=== PATIENT | female | born 1965 | race Caucasian/White ===

== ENCOUNTER 2017-11-09 18:54 | Inpatient (IN) | payer OTHER ==
[~2017-11-09] VITALS: Ht 154.9 cm; Wt 72.6 kg
[2017-11-09 18:58] VITALS: BP 92/56
--- NOTE | 2017-11-09 19:00 | NUR ---
biba to rm 6 report given to Josephine TORRES
--- NOTE | 2017-11-09 19:01 | NUR ---
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 PT DENIES N/V/D; SKIN IS INTACT, PALE/DIAPHORETIC; AAOX4, PERRL; LUNGS CLEAR BL, BREATHING UNLABORED; HR EVEN AND REGULAR, BL PERIPHERAL PULSES PRESENT; BS ACTIVE X4, NO TENDERNESS TO PALPATION, NO HEPATOSPLENOMEGALLY PALPATED, RESONANT TO PERCUSSION; PT DENIES ANY FEVER, CP, SOB, OR COUGH AT THIS TIME; PT STATES 0/10 PAIN AT THIS TIME, BUT C/O NUMBNESS IN R ARM; VSS; PATIENT POSITIONED FOR COMFORT; HOB ELEVATED; BEDRAILS UP X2; BED DOWN.
[2017-11-09] MEDS ORDERED: NACL 0.9% 1,000 ML IV ONE ×2 (19:10→20:55)
--- NOTE | 2017-11-09 19:24 | NUR ---
histotechnician at bedside.
[2017-11-09 19:44] LABS: BASOPHILS # (AUTO) 0.1 K/uL (0.00-0.22); BASOPHILS % (AUTO) 1.1 % (0.0-2.0); EOSINOPHILS # (AUTO) 0.1 K/uL (0-0.4); EOSINOPHILS % (AUTO) 1.1 % (0.0-4.0); HEMATOCRIT 27.4 % (36-48); HEMOGLOBIN 8.8 g/dL (12.0-16.0); LYMPHOCYTES # (AUTO) 1.8 K/uL (2.5-16.5); LYMPHOCYTES % (AUTO) 29.4 % (20.5-51.1); MEAN CORPUSCULAR HEMOGLOBIN 29 pg (27-31); MEAN CORPUSCULAR HGB CONC 32 g/dL (33-37); MONOCYTES # (AUTO) 0.4 K/uL (0.8-1.0); MONOCYTES % (AUTO) 6.9 % (1.7-9.3); NEUTROPHILS # (AUTO) 3.9 K/uL (1.8-7.7); NEUTROPHILS % (AUTO) 61.5 % (42.2-75.2); PLATELET COUNT (AUTO) 241 K/uL (140-450); RED BLOOD CELL COUNT(AUTO) 3.01 MIL/uL (4.20-5.40); RED CELL DISTRIBUTION WIDTH 15.6 % (11.6-13.7); WHITE BLOOD COUNT (AUTO) 6.3 K/uL (4.8-10.8)
[2017-11-09 20:19] LABS: ALBUMIN 3.2 g/dL (3.4-5.0); ANION GAP 11.2 (8-16); CARBON DIOXIDE 26.2 mmol/L (21-32); CREATININE 1.8 mg/dL (0.6-1.3); POTASSIUM 3.4 mmol/L (3.5-5.1); TOTAL BILIRUBIN 0.2 mg/dL (0.0-1.0)
[2017-11-09] MEDS ORDERED: cefTRIAXone 1,000 MG in DEXT 5% MINI-BAG PLUS 50 ML IV ONE (20:30)
--- NOTE | 2017-11-09 20:34 | NUR ---
PHLEB at bedside for blood draw.
[2017-11-09] MEDS ORDERED: cefTRIAXone 1,000 MG VIAL ONE ×2 (20:38→22:39)
[2017-11-09] MEDS ORDERED: ONDANSETRON 4 MG/2 ML VIAL IM/IVP PRN (20:55)
[2017-11-09] MEDS ORDERED: ACETAMINOPHEN 325 MG TAB PO PRN (20:55)
[2017-11-09] MEDS ORDERED: ASPIRIN 81 MG TAB.CHEW PO ONE (21:05)
[2017-11-09] MEDS ORDERED: BUDESONIDE 0.5 MG/2 ML NEBU INH SCH ×2 (21:10→22:30)
[2017-11-09] MEDS ORDERED: ALBUTEROL SULFATE/IPRATROPIU 3 ML SOL IH PRN (21:10)
--- NOTE | 2017-11-09 21:15 | NUR ---
Dr. Bauer evaluating patient at bedside.
[2017-11-09 21:25] VITALS: BP 97/70
--- NOTE | 2017-11-09 21:25 | NUR ---
RECEIVED PT FROM ER ON [facility] AT BEDSIDE FOR CONTINUITY OF CARE. PT AAOX4. PT IV NOTED R HAND 18G. NO SOB NO S/S OF DISTRESS ON ROOM AIR. GAIT IS WEAK BUT ABLE TO AMBULATE TO BED. PT IS HERE FOR SYNCOPE AND UTI. HYPOTENSION. PT ORIENTED TO ROOM. WILL CONTINUE TO MONITOR.
[2017-11-09 21:26] LABS: APPEARANCE,URINE CLEAR (CLEAR); BILIRUBIN,URINE NEGATIVE (NEGATIVE); BLOOD, URINE NEGATIVE (NEGATIVE); COLOR,URINE YELLOW (YELLOW); LEUKOCYTE ESTERASE ,URINE 1+ (NEGATIVE); NITRITE, URINE NEGATIVE (NEGATIVE); PH,URINE 5.5 (5.0-9.0); UGLUCOSE NEGATIVE (NEGATIVE)
--- NOTE | 2017-11-09 21:32 | NUR ---
Patient will be admitted to care of DR. DANIELS. Admited to [facility] . Will go to room 125 B. Belongings list completed. Report to SANDRA TORRES.
[2017-11-09 21:36] LABS: RBC,URINE 0-5 (RARE) /HPF (0-5); WBC,URINE 0-5 (RARE) /HPF (0-5)
[2017-11-09 21:38] LABS: CHOL/HDL RATIO 4.4 (1-4.5); MAGNESIUM 1.7 mg/dL (1.8-2.4); PHOSPHORUS 3.5 mg/dL (2.5-4.9); THYROID STIMULATING HORMONE 46.19 uIU/mL (0.34-3.74)
[2017-11-09 21:49] LABS: PROTHROMBIN TIME 11.7 secs (10.8-13.4)
[2017-11-09] MEDS ORDERED: MECLIZINE 25 MG TAB PO SCH ×2 (22:00→22:30)
[2017-11-09] MEDS ORDERED: ALBUTEROL SULFATE/IPRATROPIU 3 ML SOL IH SCH (22:00)
[2017-11-09] MEDS ORDERED: POTASSIUM CHLORIDE 10 MEQ TABER PO ONE (22:30)
[2017-11-09] MEDS ORDERED: ASPIRIN 81 MG TAB.CHEW ONE (22:39)
[2017-11-09] MEDS: ATORVASTATIN 80 MG TAB PO SCH (22:47)
[2017-11-09] MEDS: MORPHINE SULFATE 2 MG/ML SYR IVP PRN (22:48)
[2017-11-09] MEDS: NACL 0.9% 1,000 ML IV SCH (22:54)
--- NOTE | 2017-11-09 23:00 | NUR ---
PT RECEIVED ANTI NAUSEA MED. PT ABLE TO TAKE MED STATED IT IS WORKING. GAVE SANDWICH. WILL CONTINUE TO MONITOR.
[2017-11-09 23:28] LABS: BARBITURATE, URINE NEG. ng/ml (NEG <=200); BENZODIAZEPINE, URINE NEG. ng/mL (NEG <=200); CANNABINOID, URINE NEG. ng/mL (NEG <=50); COCAINE, URINE NEG. ng/mL (NEG <=300); OPIATE, URINE NEG. ng/mL (NEG <=2000); PHENCYCLIDINE SCREEN,URINE NEG. ng/mL (NEG <=25)
[2017-11-10] VITALS: BP 97/59
--- NOTE | 2017-11-10 02:17 | NUR ---
PT SLEEPING NO SOB NO S/S OF DISTRESS WILL CONTINUE TO MONITOR.
[2017-11-10 04:00] VITALS: BP 107/61
[2017-11-10] MEDS: MECLIZINE 25 MG TAB PO SCH ×3 (05:34→20:44)
[2017-11-10] MEDS: HYDROcodone/APAP 7.5/325 MG 1 TAB PO PRN ×4 (05:40→20:44)
[2017-11-10] MEDS ORDERED: LEVOTHYROXINE 0.025 MG TAB PO SCH (06:30)
[2017-11-10] MEDS: ALBUTEROL SULFATE/IPRATROPIU 3 ML SOL IH SCH ×3 (07:28→20:11)
[2017-11-10] MEDS: BUDESONIDE 0.5 MG/2 ML NEBU INH SCH ×2 (07:28→20:11)
--- NOTE | 2017-11-10 07:30 | NUR ---
RECEIVED BEDSIDE REPORT FROM BRIAN FLORES, PT STABLE, RESTING IN BED, ON RA, IV IN RIGHT FA RUNNING AT 80 ML/HR. UPDATED BOARD, EXPLAINED PLAN OF CARE, EXPLAINED IMPORTANCE OF REPORTING FLUID CONSUMPTION AND URINE OUTPUT FOR STRICT I&O. CALL LIGHT WITHIN REACH, BED IN LOWEST POSITION, V/S TAKEN, PT REQUESTED NORCO FOR PAIN 6/10 IN LEGS, WILL GIVE PAIN MEDICATION ACCORDING TO DRS ORDER, PT ASKED TO TAKE DUE MEDICATIONS AND PAIN MEDICATION AT SAME TIME SO PT CAN SLEEP, WILL CLUSTER CARE TO ALLOW PT TO REST. WILL CONTINUE TO MONITOR.
--- NOTE | 2017-11-10 07:30 | NUR ---
ENDORSED REPORT TO DAYSHIFT NURSE AT BEDSIDE FOR CONTINUITY OF CARE.
[2017-11-10 08:00] VITALS: BP 106/65
[2017-11-10 08:58] LABS: BASOPHILS # (AUTO) 0.1 K/uL (0.00-0.22); BASOPHILS % (AUTO) 1.1 % (0.0-2.0); EOSINOPHILS # (AUTO) 0.1 K/uL (0-0.4); EOSINOPHILS % (AUTO) 0.9 % (0.0-4.0); HEMATOCRIT 27.7 % (36-48); HEMOGLOBIN 8.9 g/dL (12.0-16.0); LYMPHOCYTES # (AUTO) 1.8 K/uL (2.5-16.5); LYMPHOCYTES % (AUTO) 28.7 % (20.5-51.1); MEAN CORPUSCULAR HEMOGLOBIN 30 pg (27-31); MEAN CORPUSCULAR HGB CONC 32 g/dL (33-37); MEAN CORPUSCULAR VOLUME 91.2 fL (80-94); MONOCYTES # (AUTO) 0.3 K/uL (0.8-1.0); MONOCYTES % (AUTO) 5.5 % (1.7-9.3); NEUTROPHILS # (AUTO) 3.9 K/uL (1.8-7.7); NEUTROPHILS % (AUTO) 63.8 % (42.2-75.2); PLATELET COUNT (AUTO) 245 K/uL (140-450); RED BLOOD CELL COUNT(AUTO) 3.03 MIL/uL (4.20-5.40); RED CELL DISTRIBUTION WIDTH 15.2 % (11.6-13.7); WHITE BLOOD COUNT (AUTO) 6.1 K/uL (4.8-10.8)
[2017-11-10 09:09] LABS: ANION GAP 11.8 (8-16); CARBON DIOXIDE 23.3 mmol/L (21-32); CREATININE 1.3 mg/dL (0.6-1.3); POTASSIUM 4.1 mmol/L (3.5-5.1)
[2017-11-10 09:10] LABS: MAGNESIUM 1.8 mg/dL (1.8-2.4); PHOSPHORUS 3.1 mg/dL (2.5-4.9)
[2017-11-10] MEDS: ATORVASTATIN 80 MG TAB PO SCH (09:50)
--- NOTE | 2017-11-10 09:51 | NUR ---
PER MD ORDER STARTED NEW BAG NACL @120 ML/HR. WILL RUN FOR 8 HR 20 MINS.
[2017-11-10] MEDS: NACL 0.9% 1,000 ML IV SCH (09:52)
[2017-11-10] MEDS: ASPIRIN 81 MG TAB.CHEW PO SCH (09:52)
--- NOTE | 2017-11-10 09:53 | NUR ---
PATIENT HAS BEEN SCREENED AND CATEGORIZED MODERATE NUTRITION RISK. PATIENT WILL BE SEEN WITHIN 3-5 DAYS OF ADMISSION. 11/12/17-11/14/[address]
--- NOTE | 2017-11-10 10:36 | NUR ---
PT RESTING IN BED, STATES PAIN IT TOLERABLE, FAMILY AT BEDSIDE, CALL LIGHT WITHIN REACH, WILL CONTINUE TO MONITOR.
[2017-11-10] MEDS ORDERED: FLUO10CA21 PO (10:49)
[2017-11-10] MEDS ORDERED: NON-FORMULARY ITEM (Bupropion HCl* (Wellbutrin Xl*) 1 TAB) PO SCH (10:50)
[2017-11-10] MEDS ORDERED: BUPR300T70 PO (10:53)
[2017-11-10] MEDS ORDERED: UMEC1POW IH (10:53)
[2017-11-10] MEDS ORDERED: BECL0.0464 INH (10:53)
[2017-11-10] MEDS ORDERED: PRAZ1CAP5 PO (10:53)
[2017-11-10 12:00] VITALS: BP 92/63
--- NOTE | 2017-11-10 12:57 | NUR ---
PT RESTING IN BED, FAMILY AT BEDSIDE, NO SIGNS OF DISTRESS, CALL LIGHT WITHIN REACH, WILL CONTINUE TO MONITOR.
--- NOTE | 2017-11-10 14:51 | NUR ---
CALL FROM PHARMACY, AT HOME MEDICATIONS FOR GLAUCOMA ARRIVED, WILL GIVE ANORO 1 PUFF TODAY ONCE ON UNIT, AND WILL ENDORSE TO GIVE QVAR STARTING TOMORROW MORNING.
[2017-11-10] MEDS ORDERED: [UNRECOGNIZED DRUG - OTHER] IH SCH (15:00)
[2017-11-10] MEDS ORDERED: PATIENTS OWN EENT INH SCH (15:00)
[2017-11-10 16:25] VITALS: BP 104/65
--- NOTE | 2017-11-10 19:33 | NUR ---
ENDORSED PT TO CASTING CARRIER NURSE SARA. FLETCHER STABLE. Addendum: 11/10/17 at 1933 by Iqra Vincent RN BRIAN FLORES
--- NOTE | 2017-11-10 19:34 | NUR ---
IV FLUIDS COMPETED. AGRICULTURAL EDUCATION INSTRUCTOR NURSE WILL START NEW BAG 1000 ML NACL AT 60 ML.
--- NOTE | 2017-11-10 19:45 | NUR ---
STARTED NEW BAG OF IV FLUIDS NS AT 80ML/HR. WILL CONTINUE TO MONITOR.
[2017-11-10 20:00] VITALS: BP 98/61
[2017-11-10] MEDS: buPROPion 150 MG TABER PO SCH (20:44)
[2017-11-10] MEDS ORDERED: PRAZOSIN 1 MG CAP PO SCH (21:00)
--- NOTE | 2017-11-10 22:29 | NUR ---
RECEIVED PT REPORT AT BEDSIDE FOR CONTINUITY OF CARE PT AAOX4. PT IV NOTED RFA 20G NS 80ML/HR. NO SOB NO S/S OF DISTRESS. ON RA. BED LOWERED CALL LIGHT WITHIN REACH WILL CONTINUE TO MONITOR. Addendum: 11/10/17 at 2232 by Leilani Ritchie RN TIME RECEIVED REPORT WAS AT 1935.
[2017-11-11] VITALS: BP 89/56
[2017-11-11] MEDS ORDERED: NACL 0.9% 250 ML IV ONE (01:30)
--- NOTE | 2017-11-11 01:30 | NUR ---
PT BP IS 89/56 MAP 67. MD AWARE AND ORDERED 250ML BOLUS. BOLUS STARTED WILL CONTINUE TO MONITOR.
[2017-11-11 04:00] VITALS: BP 93/50
--- NOTE | 2017-11-11 05:30 | NUR ---
MD AWARE OF LOW BP OF 93/50. NO CHANGE IN ORDERS. STATED MAYBE D/T PT TAKES PRAZOSIN FOR NIGHTMARE( LOWERS BP).
[2017-11-11] MEDS: MECLIZINE 25 MG TAB PO SCH ×2 (05:38→12:53)
[2017-11-11] MEDS ORDERED: LEVOTHYROXINE 0.025 MG TAB PO SCH (06:30)
[2017-11-11] MEDS ORDERED: LEVOTHYROXINE 0.1 MG, LEVOTHYROXINE 0.05 MG PO SCH ×2 (06:30)
[2017-11-11 07:01] LABS: BASOPHILS # (AUTO) 0.1 K/uL (0.00-0.22); BASOPHILS % (AUTO) 1.2 % (0.0-2.0); EOSINOPHILS # (AUTO) 0.1 K/uL (0-0.4); EOSINOPHILS % (AUTO) 1.7 % (0.0-4.0); HEMATOCRIT 26.6 % (36-48); HEMOGLOBIN 8.7 g/dL (12.0-16.0); LYMPHOCYTES # (AUTO) 1.7 K/uL (2.5-16.5); LYMPHOCYTES % (AUTO) 35.5 % (20.5-51.1); MEAN CORPUSCULAR HEMOGLOBIN 30 pg (27-31); MEAN CORPUSCULAR HGB CONC 33 g/dL (33-37); MEAN CORPUSCULAR VOLUME 91.1 fL (80-94); MONOCYTES # (AUTO) 0.3 K/uL (0.8-1.0); MONOCYTES % (AUTO) 5.3 % (1.7-9.3); NEUTROPHILS # (AUTO) 2.7 K/uL (1.8-7.7); NEUTROPHILS % (AUTO) 56.3 % (42.2-75.2); PLATELET COUNT (AUTO) 224 K/uL (140-450); RED BLOOD CELL COUNT(AUTO) 2.92 MIL/uL (4.20-5.40); RED CELL DISTRIBUTION WIDTH 15.6 % (11.6-13.7); WHITE BLOOD COUNT (AUTO) 4.8 K/uL (4.8-10.8)
[2017-11-11 07:17] LABS: CARBON DIOXIDE 26.3 mmol/L (21-32); CREATININE 1.1 mg/dL (0.6-1.3); POTASSIUM 4.3 mmol/L (3.5-5.1)
[2017-11-11 07:20] LABS: MAGNESIUM 1.6 mg/dL (1.8-2.4); PHOSPHORUS 3.2 mg/dL (2.5-4.9)
--- NOTE | 2017-11-11 07:33 | NUR ---
ENDORSED REPORT TO DAYSHIFT NURSE AT BEDSIDE FOR CONTINUITY OF CARE.
[2017-11-11] MEDS: ALBUTEROL SULFATE/IPRATROPIU 3 ML SOL IH SCH (07:40)
[2017-11-11] MEDS: BUDESONIDE 0.5 MG/2 ML NEBU INH SCH (07:47)
[2017-11-11 08:00] VITALS: BP 106/66
--- NOTE | 2017-11-11 08:00 | NUR ---
RECEIVED REPORT FROM DYNAMICS AX CONSULTANT NURSE SANDRA, PT RESTING IN BED, NO C/O OF PAIN, V/S TAKEN NOTHING ABNORMAL FROM BASELINE, EXPLAINED PLAN OF CARE, UPDATED BOARD, IV RUNNING AT 120 ML/HR, PATENT AND INTACT. PT REQUESTED TO REST. CALL LIGHT WITHIN REACH.
[2017-11-11] MEDS ORDERED: BECLOMETHASONE DIPROPIONATE INH SCH (09:00)
[2017-11-11] MEDS ORDERED: PATIENTS OWN EENT INH SCH (09:00)
[2017-11-11] MEDS ORDERED: FLUoxetine 10 MG CAP PO SCH (09:00)
[2017-11-11] MEDS ORDERED: LEVO0.155 PO (09:19)
[2017-11-11] MEDS: ATORVASTATIN 80 MG TAB PO SCH (09:19)
[2017-11-11] MEDS ORDERED: ACET-8386 PO (09:19)
[2017-11-11] MEDS: ASPIRIN 81 MG TAB.CHEW PO SCH (09:19)
[2017-11-11] MEDS ORDERED: ASCO1CAP75 PO (09:19)
[2017-11-11] MEDS ORDERED: CEPH500T PO (09:19)
[2017-11-11] MEDS: buPROPion 150 MG TABER PO SCH (09:19)
[2017-11-11] MEDS ORDERED: DOCU-299 PO (09:19)
[2017-11-11] MEDS ORDERED: ATOR20TA PO (09:19)
[2017-11-11] MEDS ORDERED: MAGNESIUM OXIDE 400 MG TAB PO SCH (09:25)
[2017-11-11] MEDS: MORPHINE SULFATE 2 MG/ML SYR IVP PRN (09:41)
[2017-11-11 10:55] VITALS: BP 106/66
[2017-11-11] MEDS ORDERED: MECL-272 PO (11:03)
--- NOTE | 2017-11-11 13:13 | NUR ---
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 PT CLARIFIED HOME MEDICATIONS. D/C IV IN RIGHT FA, 20 G INTACT. ALL DC PAPERWORK SIGNED AND IN CHART.
--- NOTE | 2017-11-11 13:26 | NUR ---
PT LEFT VIA WC IN PRIVATE VEHICLE, PT STABLE AT THIS TIME.
[2017-11-11 14:18] VITALS: BP 105/85
--- NOTE | 2017-11-12 07:27 | NUR ---
RETRO REVIEW ER REPORT, H&P, PROGRESS NOTES AND DC SUMMARY FAXED TO [facility] [phone] PHONE [phone]
[2017-11-13 06:21] LABS: HEPATITIS A ANTIBODY IGM Negative (Negative); HEPATITIS B CORE AB TOTAL Negative (Negative); HEPATITIS B SURFACE ANTIBODY Non Reactive (.); HEPATITIS B SURFACE ANTIGEN Negative (Negative)
[2017-11-16 09:19] LABS: T3 UPTAKE 13 % (24-39)
[2017-11-16 09:20] LABS: T4 (THYROXINE) <0.5 ug/dL (4.5-12.0)
== END 2017-11-11 13:26 | disposition home or self-care (01) | DRG 469 ==
LOC: MED 18:54 → MMU 21:00 → MTU 11-10 16:47
PROVIDERS: ADMIT General Practice; ATTEND General Practice
DX: N17.0 Acute kidney failure with tubular necrosis (principal); I95.9 Hypotension, unspecified; E44.0 Moderate protein-calorie malnutrition; G90.9 Disorder of the autonomic nervous system, unspecified; E83.42 Hypomagnesemia; E83.51 Hypocalcemia; H81.10 Benign paroxysmal vertigo, unspecified ear; F41.9 Anxiety disorder, unspecified; N39.0 Urinary tract infection, site not specified; F32.9 Major depressive disorder, single episode, unspecified; E86.0 Dehydration; J44.9 Chronic obstructive pulmonary disease, unspecified; M79.7 Fibromyalgia; G47.33 Obstructive sleep apnea (adult) (pediatric); N18.9 Chronic kidney disease, unspecified; F17.210 Nicotine dependence, cigarettes, uncomplicated; R06.03 Acute respiratory distress; E87.6 Hypokalemia; Z68.30 Body mass index [BMI] 30.0-30.9, adult; E78.5 Hyperlipidemia, unspecified; Z91.19 Patient's noncompliance with other medical treatment and regimen; E89.0 Postprocedural hypothyroidism
CPT/HCPCS: 36415; 70450; 71045; 76536; 76770; 80048; 80053; 80305; 81001; 81025; 82140; 83036; 83605; 83690; 83735; 83880; 84100; 84436; 84443; 84479; 84484; 85025; 85610; 85730; 86704; 86706; 86708; 86709; 86803; 87040; 87081; 87086; 87340; 93005; 93880; 94640; 96365; 99291; J0696; J2270; J7030; J7060; J7620; J7626; J8597; Q0092

== ENCOUNTER 2021-03-25 09:55 | Day surgery (SDC) | payer OTHER, SELFPAY ==
[~2021-03-25] VITALS: Ht 154.9 cm; Wt 77.1 kg
[~2021-03-25 09:55] MED LIST: ACET-8386 PO; ASCO1CAP75 PO; ATOR20TA PO; BECL0.0464 INH; BUPR300T70 PO; CEPH500T PO; DOCU-299 PO; FLUO10CA21 PO; LEVO0.155 PO; MECL-303 PO; PRAZ1CAP5 PO; UMEC1POW IH
[2021-03-25] MEDS ORDERED: MIDAZOLAM 2 MG/2 ML VIAL ONE (12:56)
[2021-03-25] MEDS ORDERED: fentaNYL citrate 0.05 MG/ML VIAL ONE (12:56)
[2021-03-25] MEDS ORDERED: MIDAZOLAM 2 MG/2 ML VIAL IVP ONE (13:40)
== END 2021-03-25 14:01 | disposition home or self-care (01) ==
LOC: MDS 09:55 → MMU 11:03 → MDS 14:01
PROVIDERS: ATTEND Internal Medicine Gastroenterology
DX: K22.70 Barrett's esophagus without dysplasia (principal); K21.00 Gastro-esophageal reflux disease with esophagitis, without bleeding; E66.9 Obesity, unspecified; F17.210 Nicotine dependence, cigarettes, uncomplicated; E78.5 Hyperlipidemia, unspecified; Z68.32 Body mass index [BMI] 32.0-32.9, adult; Z79.899 Other long term (current) drug therapy; Z20.822 Contact with and (suspected) exposure to COVID-19
CPT/HCPCS: 36415; 43239; 86677; 87426; J2250; J3010